=== PATIENT | female | born 1950 | race African-American/Black ===

== ENCOUNTER 2017-05-19 12:54 | Observation (INO) | payer OTHER ==
[~2017-05-19] VITALS: Ht 157.5 cm; Wt 74.8 kg
[~2017-05-19 12:54] MED LIST: BETA50CR5 TP; BETASERON SUBCUT; CLON0.5T4 PO; CLOT15CR2 TP; DONE5TAB33 PO; FURO-151 PO; KEPP500 PO; LAMO25TA4 PO; LEVO100T9 PO; MEMA10TA2 PO; NEOM10DR11 EACH EAR; OMEP20CA10 PO; [UNRECOGNIZED DRUG - CODE] SQ
[2017-05-19 14:27] LABS: BASOPHILS % 0.5 % (0.0-2.0); EOSINOPHILS % 4.3 % (0.0-5.0); HEMATOCRIT. 37.5 % (36.0-48.0); HEMOGLOBIN. 12.4 g/dL (12.0-16.0); LYMPHOCYTES % 15.3 % (20.0-50.0); MEAN CORPUSCULAR HEMOGLOBIN 28.5 pg (28.0-32.0); MEAN CORPUSCULAR VOLUME 86.2 fL (81.0-99.0); MEAN PLATELET VOLUME 8.9 fl (7.4-10.4); MONOCYTES % 6.7 % (2.0-8.0); NEUTROPHILS % 73.2 % (40.0-76.0); PLATELET 336 x1000/uL (130-400); RED BLOOD CELL COUNT 4.35 mill/uL (4.2-5.4); RED CELL DISTRIBUTION WIDTH 15.2 % (11.6-14.6)
[2017-05-19 14:34] LABS: INR 1.1; PROTHROMBIN TIME 11.5 sec (9.4-11.6)
[2017-05-19 14:39] LABS: CARBON DIOXIDE 23 mEq/L (21-32); CHLORIDE 112 mEq/L (98-107); ETHANOL BLOOD < 10 mg/dL
[2017-05-19 14:45] LABS: TROPONIN I < 0.02 ng/mL (0.00-0.04)
[2017-05-19] MEDS ORDERED: ACETAMINOPHEN 325MG TABLET PO PRN (18:15)
[2017-05-19] MEDS: DEXT 5%/0.45% NACL KCL 20MEQ/L 1,000 ML IV SCH (20:38)
[2017-05-19] MEDS: LEVETIRACETAM 500MG TABLET PO SCH (21:53)
[2017-05-19] MEDS: LAMOTRIGINE 100MG TABLET PO SCH (21:53)
[2017-05-19] MEDS: OMEPRAZOLE 20MG CAPSULE EXTENDED RELEASE PO SCH (21:53)
[2017-05-20 06:46] LABS: HEMATOCRIT 33.6 % (36.0-48.0); HEMOGLOBIN 11.1 g/dL (12.0-16.0); MEAN CORPUSCULAR HEMOGLOBIN 28.7 pg (28.0-32.0); MEAN CORPUSCULAR VOLUME 86.7 fL (81.0-99.0); PLATELET 276 x1000/uL (130-400); RED BLOOD CELL COUNT 3.88 mill/uL (4.2-5.4); RED CELL DISTRIBUTION WIDTH 15.1 % (11.6-14.6)
[2017-05-20 07:39] LABS: CHLORIDE 112 mEq/L (98-107)
[2017-05-20 08:07] LABS: CARBON DIOXIDE 23 mEq/L (21-32)
[2017-05-20] MEDS: LEVOTHYROXINE SODIUM 100MCG TABLET PO SCH (08:13)
[2017-05-20] MEDS: OMEPRAZOLE 20MG CAPSULE EXTENDED RELEASE PO SCH (08:13)
[2017-05-20] MEDS: LAMOTRIGINE 100MG TABLET PO SCH ×2 (08:14→20:34)
[2017-05-20] MEDS: LEVETIRACETAM 500MG TABLET PO SCH ×2 (08:14→20:35)
[2017-05-20] MEDS: FUROSEMIDE 40MG TABLET PO SCH (08:14)
[2017-05-20] MEDS: HEPARIN 5000 UNITS/ML VIAL SUBCUT SCH ×2 (08:15→17:59)
[2017-05-20 17:27] LABS: *AMPHETAMINES SCREEN URINE NEGATIVE (NEGATIVE); *BARBITURATES SCREEN URINE NEGATIVE (NEGATIVE); *BENZODIAZEPINES SCREEN URINE NEGATIVE (NEGATIVE); *COCAINE SCREEN URINE NEGATIVE (NEGATIVE); CANNABINOID URINE SCREEN NEGATIVE (NEGATIVE); METHADONE URINE SCREEN NEGATIVE (NEGATIVE); OPIATES URINE SCREEN NEGATIVE (NEGATIVE); PHENCYCLIDINE URINE SCREEN NEGATIVE (NEGATIVE)
[2017-05-20] MEDS: DEXT 5%/0.45% NACL KCL 20MEQ/L 1,000 ML IV SCH (18:04)
[2017-05-20] MEDS: FAMOTIDINE 20MG TABLET PO SCH (20:35)
[2017-05-21] MEDS: HEPARIN 5000 UNITS/ML VIAL SUBCUT SCH ×3 (00:58→18:45)
[2017-05-21] MEDS: DEXT 5%/0.45% NACL KCL 20MEQ/L 1,000 ML IV SCH ×2 (02:04→21:52)
[2017-05-21] MEDS: LEVETIRACETAM 500MG TABLET PO SCH ×2 (08:39→21:52)
[2017-05-21] MEDS: FAMOTIDINE 20MG TABLET PO SCH ×2 (08:39→21:52)
[2017-05-21] MEDS: LAMOTRIGINE 100MG TABLET PO SCH ×2 (08:39→21:52)
[2017-05-21] MEDS: LEVOTHYROXINE SODIUM 100MCG TABLET PO SCH (08:39)
[2017-05-21] MEDS: FUROSEMIDE 40MG TABLET PO SCH (08:39)
[2017-05-21 16:57] LABS: AMMONIA 34 uMol/L (<32)
[2017-05-21] MEDS: CLONAZEPAM 0.5MG TABLET PO SCH (21:52)
[2017-05-21] MEDS: MICONAZOLE NITRATE 2% OINT 71GM TOP SCH (23:42)
[2017-05-22] MEDS: HEPARIN 5000 UNITS/ML VIAL SUBCUT SCH ×3 (01:51→18:08)
[2017-05-22] MEDS: LEVETIRACETAM 500MG TABLET PO SCH ×2 (08:58→20:22)
[2017-05-22] MEDS: LEVOTHYROXINE SODIUM 100MCG TABLET PO SCH (08:58)
[2017-05-22] MEDS: FUROSEMIDE 40MG TABLET PO SCH (08:59)
[2017-05-22] MEDS: FAMOTIDINE 20MG TABLET PO SCH ×2 (08:59→20:22)
[2017-05-22] MEDS: LAMOTRIGINE 100MG TABLET PO SCH ×2 (08:59→20:22)
[2017-05-22] MEDS: MICONAZOLE NITRATE 2% OINT 71GM TOP SCH ×2 (09:00→20:30)
[2017-05-22] MEDS: DEXT 5%/0.45% NACL KCL 20MEQ/L 1,000 ML IV SCH (12:55)
[2017-05-22] MEDS ORDERED: LEVOFLOXACIN 250MG TABLET PO SCH (15:30)
[2017-05-22] MEDS: CLONAZEPAM 0.5MG TABLET PO SCH (20:22)
[2017-05-22 21:14] VITALS: BP 105/56
== END 2017-05-22 21:30 | disposition home health service (06) ==
LOC: ER 12:54 → INTOOBSV 14:17 → 7WST 14:17 → EDBEDREQSVC 14:21 → EDBEDREQTM 14:21 → EDBEDREQ 14:21 → ENRESERV 15:45
PROVIDERS: ADMIT Ophthalmology; ATTEND Ophthalmology
DX: G40.919 Epilepsy, unspecified, intractable, without status epilepticus (principal); E03.9 Hypothyroidism, unspecified; G35 Multiple sclerosis; G31.84 Mild cognitive impairment of uncertain or unknown etiology; G93.40 Encephalopathy, unspecified; F03.90 Unspecified dementia, unspecified severity, without behavioral disturbance, psychotic disturbance, mood disturbance, and anxiety; Z87.440 Personal history of urinary (tract) infections
CPT/HCPCS: 36415; 70450; 71010; 80048; 80053; 80305; 82140; 82542; 84484; 85025; 85027; 85610; 87077; 87086; 87186; 93005; 96360; 96361; 96372; 97116; 97162; 99285; A6261; G0378; G0482; J1644; J7030

== ENCOUNTER 2017-11-09 09:46 | Emergency (ER) | payer OTHER ==
[~2017-11-09] VITALS: Ht 167.6 cm; Wt 80.0 kg
[2017-11-09 18:00] VITALS: BP 113/56
== END 2017-11-09 18:44 | disposition home or self-care (01) ==
LOC: ER 09:52
DX: S70.02XA Contusion of left hip, initial encounter (principal); E03.9 Hypothyroidism, unspecified; F03.90 Unspecified dementia, unspecified severity, without behavioral disturbance, psychotic disturbance, mood disturbance, and anxiety; W01.0XXA Fall on same level from slipping, tripping and stumbling without subsequent striking against object, initial encounter; Y93.01 Activity, walking, marching and hiking; Y92.008 Other place in unspecified non-institutional (private) residence as the place of occurrence of the external cause; Y99.8 Other external cause status
CPT/HCPCS: 73522; 99284

== ENCOUNTER 2019-01-08 19:09 | Inpatient (IN) | payer OTHER ==
[~2019-01-08] VITALS: Ht 162.6 cm; Wt 103.4 kg
[~2019-01-08 19:09] MED LIST changes: +CLON0.5T12 PO; -CLON0.5T4 PO
[2019-01-08] MEDS ORDERED: IBUPROFEN 600MG TABLET PO ONE (19:45)
[2019-01-08] MEDS ORDERED: AMOXICILLIN 500 MG CAPSULE PO ONE (19:45)
[2019-01-08 20:22] LABS: BASOPHILS % 0.5 % (0.0-2.0); EOSINOPHILS % 2.3 % (0.0-5.0); HEMATOCRIT. 37.2 % (36.0-48.0); HEMOGLOBIN. 12.5 g/dL (12.0-16.0); LYMPHOCYTES % 14.4 % (20.0-50.0); MEAN CORPUSCULAR HEMOGLOBIN 29.4 pg (28.0-32.0); MEAN CORPUSCULAR VOLUME 87.4 fL (81.0-99.0); MEAN PLATELET VOLUME 9.1 fl (7.4-10.4); MONOCYTES % 9.4 % (2.0-8.0); NEUTROPHILS % 73.4 % (40.0-76.0); PLATELET 196 x1000/uL (130-400); RED BLOOD CELL COUNT 4.26 mill/uL (4.2-5.4); RED CELL DISTRIBUTION WIDTH 14.1 % (11.6-14.6)
[2019-01-08 20:28] LABS: CHLORIDE 106 mEq/L (98-107)
[2019-01-08 20:32] LABS: PARTIAL THROMBOPLASTIN TIME 36.8 sec (23.4-31.0); PROTHROMBIN TIME 10.7 sec (9.6-11.0)
[2019-01-08] MEDS ORDERED: LEVOFLOXACIN 750MG PREMIX 150 ML IV ONE (22:15)
[2019-01-08] MEDS ORDERED: ASPIRIN 325MG EC TABLET PO ONE (22:15)
[2019-01-08] MEDS ORDERED: SODIUM CHLORIDE 0.9% 1000ML BAG (SEPSIS BOLUS) IV ONE (22:15)
[2019-01-09 04:00] VITALS: BP 107/39
[2019-01-09 04:30] VITALS: BP 107/39
[2019-01-09] MEDS ORDERED: HYDROCODONE/ACETAMINOPHEN 5/325MG TABLET PO PRN (05:30)
[2019-01-09] MEDS ORDERED: BETASERON 0.3 MG SUBCUT SCH (05:30)
[2019-01-09] MEDS ORDERED: CLONAZEPAM 0.5MG TABLET PO PRN (05:30)
[2019-01-09] MEDS ORDERED: INTERFERON BETA 0.3 MG SQ SCH (05:30)
[2019-01-09] MEDS ORDERED: MEDICATION NOT ON FORMULARY EA (Levetiracetam 1,000 MG) PO SCH (05:30)
[2019-01-09] MEDS ORDERED: FAMO20TA8 PO (05:39)
[2019-01-09] MEDS ORDERED: CLON0.5T23 PO (05:39)
[2019-01-09] MEDS ORDERED: LEVE10006 PO (05:39)
[2019-01-09] MEDS: DEXT 5%/0.45% NACL 1000ML 1,000 ML IV SCH (06:09)
[2019-01-09] MEDS: LEVOTHYROXINE SODIUM 100MCG TABLET PO SCH (06:32)
[2019-01-09] MEDS: CLINDAMYCIN 900 MG in DEXTROSE 5% WATER 50 ML IV SCH ×3 (06:35→21:38)
[2019-01-09] MEDS ORDERED: MEDICATION NOT ON FORMULARY EA (Famotidine 20 MG) PO SCH (07:10)
[2019-01-09 08:00] VITALS: BP 99/54
[2019-01-09] MEDS ORDERED: MEMANTINE HCL 10MG TABLET PO SCH (09:00)
[2019-01-09] MEDS: LEVETIRACETAM 500MG TABLET PO SCH ×2 (09:00→20:23)
[2019-01-09] MEDS: CLONAZEPAM 0.5MG TABLET PO SCH ×2 (09:00→20:24)
[2019-01-09] MEDS: LAMOTRIGINE 100MG TABLET PO SCH ×2 (09:00→17:51)
[2019-01-09] MEDS ORDERED: MEDICATION NOT ON FORMULARY EA (Furosemide (Lasix) 40 MG) PO SCH (09:00)
[2019-01-09] MEDS ORDERED: MEDICATION NOT ON FORMULARY EA (Clonazepam 0.5 MG) PO SCH (09:00)
[2019-01-09] MEDS: CEFTRIAXONE 1 G PREMIX 50 ML IV SCH (09:11)
[2019-01-09 12:00] VITALS: BP 108/59
[2019-01-09 12:03] LABS: HEMATOCRIT 34.1 % (36.0-48.0); HEMOGLOBIN 11.6 g/dL (12.0-16.0); MEAN CORPUSCULAR HEMOGLOBIN 29.9 pg (28.0-32.0); MEAN CORPUSCULAR VOLUME 87.9 fL (81.0-99.0); RED BLOOD CELL COUNT 3.88 mill/uL (4.2-5.4)
[2019-01-09 12:21] LABS: T4 FREE 1.16 ng/dL (0.76-1.46)
[2019-01-09 12:30] LABS: CLARITY URINE CLOUDY (CLEAR); COLOR URINE YELLOW (YELLOW); KETONES URINE TRACE (NEGATIVE); LEUKOCYTE ESTERASE URINE 3+ (NEGATIVE); NITRITE URINE POSITIVE (NEGATIVE); OCCULT BLOOD URINE TRACE (NEGATIVE); PROTEIN URINE NEGATIVE (NEGATIVE); SPECIFIC GRAVITY URINE 1.018 (1.005-1.030); UROBILINOGEN URINE 0.2 E.U./dL (0.2-1.0)
[2019-01-09 12:59] LABS: PLATELET 176 x1000/uL (130-400)
[2019-01-09] MEDS: MEMANTINE HCL 10MG TABLET PO SCH ×2 (14:34→20:23)
[2019-01-09] MEDS: FUROSEMIDE 40MG TABLET PO SCH (14:34)
[2019-01-09 16:00] VITALS: BP 99/63
[2019-01-09] MEDS: TRIAMCINOLONE ACETONIDE 0.1% CREAM 15GM TOP SCH (17:00)
[2019-01-09 20:00] VITALS: BP 101/66
[2019-01-09] MEDS: ENOXAPARIN 30MG/0.3ML SYR SUBCUT SCH (20:16)
[2019-01-09] MEDS ORDERED: FAMOTIDINE 20MG TABLET PO SCH (21:00)
[2019-01-09] MEDS ORDERED: DONEPEZIL HCL 5MG TABLET PO SCH (21:00)
[2019-01-09] MEDS ORDERED: LEVOFLOXACIN 250MG PREMIX 50 ML IV SCH (23:00)
[2019-01-10] VITALS: BP 113/60
[2019-01-10] MEDS: DEXT 5%/0.45% NACL 1000ML 1,000 ML IV SCH (02:25)
[2019-01-10 04:00] VITALS: BP 127/59
[2019-01-10] MEDS: LEVOTHYROXINE SODIUM 100MCG TABLET PO SCH (06:04)
[2019-01-10] MEDS: CLINDAMYCIN 900 MG in DEXTROSE 5% WATER 50 ML IV SCH ×2 (06:04→13:34)
[2019-01-10 08:00] VITALS: BP 103/52
[2019-01-10] MEDS: ENOXAPARIN 30MG/0.3ML SYR SUBCUT SCH (09:00)
[2019-01-10] MEDS: TRIAMCINOLONE ACETONIDE 0.1% CREAM 15GM TOP SCH ×2 (09:00→17:00)
[2019-01-10] MEDS: CLONAZEPAM 0.5MG TABLET PO SCH (09:42)
[2019-01-10] MEDS: LEVETIRACETAM 500MG TABLET PO SCH (09:42)
[2019-01-10] MEDS: CEFTRIAXONE 1 G PREMIX 50 ML IV SCH (09:42)
[2019-01-10] MEDS: FUROSEMIDE 40MG TABLET PO SCH (09:43)
[2019-01-10] MEDS: MEMANTINE HCL 10MG TABLET PO SCH (09:43)
[2019-01-10] MEDS: LAMOTRIGINE 100MG TABLET PO SCH ×2 (09:43→17:09)
[2019-01-10 12:00] VITALS: BP 119/67
[2019-01-10 12:18] LABS: HEMATOCRIT 36.2 % (36.0-48.0); HEMOGLOBIN 12.2 g/dL (12.0-16.0); MEAN CORPUSCULAR HEMOGLOBIN 29.4 pg (28.0-32.0); MEAN CORPUSCULAR VOLUME 87.7 fL (81.0-99.0); PLATELET 202 x1000/uL (130-400); RED BLOOD CELL COUNT 4.13 mill/uL (4.2-5.4); RED CELL DISTRIBUTION WIDTH 13.8 % (11.6-14.6)
[2019-01-10 16:00] VITALS: BP 110/67
[2019-01-10 17:02] VITALS: BP 119/67
[2019-01-11] MEDS ORDERED: LEVOFLOXACIN 250MG TABLET PO SCH (11:00)
== END 2019-01-10 18:50 | disposition home or self-care (01) | DRG 682 ==
LOC: ER 19:09 → 8WST 22:43 → ENRESERV 01-09 02:23
PROVIDERS: ADMIT Internal Medicine; ATTEND Internal Medicine
DX: N17.9 Acute kidney failure, unspecified (principal); J18.9 Pneumonia, unspecified organism; J44.1 Chronic obstructive pulmonary disease with (acute) exacerbation; J44.0 Chronic obstructive pulmonary disease with (acute) lower respiratory infection; N39.0 Urinary tract infection, site not specified; G93.40 Encephalopathy, unspecified; F03.90 Unspecified dementia, unspecified severity, without behavioral disturbance, psychotic disturbance, mood disturbance, and anxiety; G35 Multiple sclerosis; E86.0 Dehydration; G40.909 Epilepsy, unspecified, not intractable, without status epilepticus; N31.9 Neuromuscular dysfunction of bladder, unspecified
CPT/HCPCS: 36415; 71045; 80048; 80061; 82542; 83036; 83605; 83880; 84439; 84443; 84484; 85027; 93005; 96361; 96365; 97162; 99285; J0696; J1650; J1956; J3490; J7030; J7060

== ENCOUNTER 2023-08-25 12:28 | Emergency (ER) | payer OTHER, MEDICAID ==
[~2023-08-25] VITALS: Ht 165.1 cm; Wt 80.0 kg
[~2023-08-25 12:28] MED LIST changes: -CLON0.5T12 PO; +CLON0.5T4 PO; -CLOT15CR2 TP; +CLOT15CR27 TP; +FAMO20TA8 PO; -LAMO25TA4 PO; +LAMO25TA9 PO; +LEVE10006 PO; -OMEP20CA10 PO; +OMEP20CA14 PO
[2023-08-25 12:37] VITALS: BP 98/52; PULSE 70; RESP 20; TEMP 98.6; O2SAT 99
[2023-08-25 15:37] LABS: BASOPHILS % 0.5 % (0.0-2.0); EOSINOPHILS % 7.1 % (0.0-5.0); HEMATOCRIT. 35.4 % (36.0-48.0); HEMOGLOBIN. 11.6 g/dL (12.0-16.0); LYMPHOCYTES % 16.9 % (20.0-50.0); MEAN CORPUSCULAR HEMOGLOBIN 29.4 pg (28.0-32.0); MEAN CORPUSCULAR HGB CONC 32.8 g/dL (31.0-37.0); MEAN CORPUSCULAR VOLUME 89.8 fL (81.0-99.0); MEAN PLATELET VOLUME 8.8 fl (7.4-10.4); MONOCYTES % 10.7 % (2.0-8.0); NEUTROPHILS % 64.8 % (40.0-76.0); PLATELET 244 x1000/uL (130-400); RED BLOOD CELL COUNT 3.95 mill/uL (4.2-5.4); RED CELL DISTRIBUTION WIDTH 14.7 % (11.6-14.6); WHITE BLOOD COUNT 12.4 x1000/uL (4.5-11.0)
[2023-08-25 18:44] LABS: ALANINE AMINOTRANSFERASE 70 IU/L (10-49); ALBUMIN 3.9 g/dL (3.2-4.8); ASPARTATE AMINOTRANSFERASE 55 IU/L (<34); BILIRUBIN TOTAL 0.4 mg/dL (0.1-1.0); CALCIUM 9.1 mg/dL (8.7-10.4); CARBON DIOXIDE 21 mEq/L (21-32); CHLORIDE 107 mEq/L (98-107); CREATININE 1.2 mg/dL (0.6-1.0); GLUCOSE 94 mg/dL (70-105); POTASSIUM 3.8 mEq/L (3.5-5.1); PROTEIN TOTAL 7.4 g/dL (6.0-8.3); SODIUM 140 mEq/L (136-145); THYROID STIMULATING HORMONE 4.41 uIU/mL (0.55-4.78); UREA NITROGEN BLOOD 14 mg/dL (9-23)
[2023-08-25 21:13] LABS: CLARITY URINE CLOUDY (CLEAR); COLOR URINE YELLOW (YELLOW); SPECIFIC GRAVITY URINE >=1.030 (1.005-1.030)
[2023-08-25 21:14] LABS: GLUCOSE URINE NEGATIVE (NEGATIVE); KETONES URINE TRACE (NEGATIVE); OCCULT BLOOD URINE 1+ (NEGATIVE); PH URINE 5.5 (4.5-8.0); PROTEIN URINE 1+ (NEGATIVE)
[2023-08-25 21:15] LABS: LEUKOCYTE ESTERASE URINE 2+ (NEGATIVE); NITRITE URINE POSITIVE (NEGATIVE)
[2023-08-25] MEDS ORDERED: CEFP200T13 MT (21:24)
[2023-08-25] MEDS ORDERED: CEFTRIAXONE SODIUM 1 G/VIAL IM ONE (21:30)
[2023-08-25] MEDS ORDERED: LIDOCAINE HCL 1% 20ML VIAL (Pyxis) INJ INFIL ONE (21:30)
[2023-08-25] MEDS ORDERED: CEFTRIAXONE SODIUM 1 G/VIAL IM NR (21:45)
[2023-08-25] MEDS ORDERED: LIDOCAINE HCL 1% 20ML VIAL (Pyxis) INJ INFIL NR (21:45)
[2023-08-25 22:04] LABS: BACTERIA URINE 3+; SQUAMOUS EPITHELIAL CELL URINE 2+ /lpf (RARE/1+)
[2023-08-25 22:05] LABS: WBC URINE 25-50 /hpf (0-2)
== END 2023-08-25 22:38 | disposition home or self-care (01) ==
LOC: ER 12:28
DX: R53.83 Other fatigue (principal); I10 Essential (primary) hypertension; E78.00 Pure hypercholesterolemia, unspecified; E03.9 Hypothyroidism, unspecified; F03.90 Unspecified dementia, unspecified severity, without behavioral disturbance, psychotic disturbance, mood disturbance, and anxiety; Z98.890 Other specified postprocedural states
CPT/HCPCS: 36415; 71045; 80053; 81003; 82962; 84439; 84443; 85025; 87426; 87804; 93005; 96372; 99285; C9803; J0696; J3490